=== PATIENT | female | born 1975 | race Native Hawaiian/Other Pacific Islander ===

== ENCOUNTER 2017-10-05 14:16 | Emergency (ER) | payer SELFPAY ==
[2017-10-05 14:49] VITALS: RESP 18
[2017-10-05 15:40] VITALS: BP 144/88; PULSE 92; TEMP 99.8; O2SAT 100
--- NOTE | 2017-10-05 17:58 | C.PDOC ---
History Of Present Illness 41 y/o female presents to the ED complaining of a persistent cough, congestion, and fever since Tuesday. Associated with diffuse bodyaches. She tried taking Mucinex at home without relief. Otherwise patient denies any chest pain, SOB, wheezing, back pain, nausea, vomiting, or abdominal pain. Time Seen by Provider: 10/05/17 14:59 Chief Complaint (Nursing): Cough, Cold, Congestion History Per: Patient History/Exam Limitations: no limitations Onset/Duration Of Symptoms: Days (x5) Current Symptoms Are (Timing): Still Present Associated Symptoms: Fever, Cough, Nasal Congestion Past Medical History Reviewed: Historical Data, Nursing Documentation, Vital Signs Vital Signs: Last Vital Signs Temp 99.8 F H 10/05/17 15:39 Pulse 92 H 10/05/17 15:39 Resp 18 10/05/17 15:39 BP 144/88 10/05/17 15:39 Pulse Ox 100 10/05/17 17:59 - Medical History PMH: HTN Surgical History: No Surg Hx Family History: States: No Known Family Hx - Social History Hx Tobacco Use: No Hx Alcohol Use: No Hx Substance Use: No - Immunization History Hx Tetanus Toxoid Vaccination: No Hx Influenza Vaccination: Yes Hx Pneumococcal Vaccination: No Review Of Systems Constitutional: Positive for: Fever ENT: Positive for: Nose Congestion Cardiovascular: Negative for: Chest Pain, Palpitations, Light Headedness Respiratory: Positive for: Cough. Negative for: Shortness of Breath, Wheezing Gastrointestinal: Negative for: Nausea, Vomiting, Abdominal Pain, Diarrhea Musculoskeletal: Negative for: Back Pain Physical Exam - Physical Exam Appears: Non-toxic, No Acute Distress Skin: Normal Color, Warm, Dry Head: Atraumatic, Normacephalic Eye(s): bilateral: Normal Inspection, EOMI Nose: Normal Oral Mucosa: Moist Throat: Normal, No Erythema, No Exudate Neck: Normal ROM, Supple Chest: Symmetrical Cardiovascular: Rhythm Regular Respiratory: No Rales, No Rhonchi, No Wheezing, Other (Lungs clear to auscultation bilaterally) Gastrointestinal/Abdominal: Soft, No Tenderness Extremity: Normal ROM Extremity: Bilateral: Atraumatic, Normal Color And Temperature, Normal ROM Neurological/Psych: Oriented x3, Normal Speech ED Course And Treatment O2 Sat by Pulse Oximetry: 100 (RA) Pulse Ox Interpretation: Normal Progress Note: On examination patient is afebrile, AAOx3, resting comfortably, in no acute distress. Lungs are clear bilaterally. Patient will be discharged home with prescriptions for Ventolin inhaler, Zithromax, and Tessalon Perles. Counseled regarding symptomatic treatment, return precautions, and advised patient to follow up with PMD/the clinic in 1-2 days. Disposition Counseled Patient/Family Regarding: Diagnosis, Need For Followup, Rx Given - Disposition Disposition: HOME/ ROUTINE Disposition Time: 15:23 Condition: STABLE Additional Instructions: Follow up with your doctor in1-2 days. Return to ER if symptoms persist or worsen. Prescriptions: Albuterol HFA [Ventolin HFA 90 mcg/actuation (8 g)] 2 puff IH [id number] PRN #1 puff PRN Reason: Shortness Of Breath Azithromycin [Zithromax] 250 mg PO DAILY #6 tab Benzonatate [Tessalon Perle] 100 mg PO TID PRN #15 capsule PRN Reason: Cough Instructions: Acute Bronchitis, Adult (DC) Forms: [employer] [facility] (Azeri) - POA Present On Arrival: None - Clinical Impression Clinical Impression: Bronchitis - PA / [employer] / Resident Statement MD/DO has reviewed & agrees with the documentation as recorded. - Scribe Statement The provider has reviewed the documentation as recorded by the Scribe (Ashlyn Chau) All medical record entries made by the Scribe were at my direction and personally dictated by me. I have reviewed the chart and agree that the record accurately reflects my personal performance of the history, physical exam, medical decision making, and the department course for this patient. I have also personally directed, reviewed, and agree with the discharge instructions and disposition.
== END 2017-10-05 15:40 | disposition home or self-care (01) ==
LOC: C.ER 14:16
DX: J40 Bronchitis, not specified as acute or chronic (principal)